=== PATIENT | female | born 1995 | race Caucasian/White ===

== ENCOUNTER 2018-12-02 20:24 | Emergency (ER) | payer SELFPAY ==
[~2018-12-02] VITALS: Ht 157.5 cm; Wt 61.2 kg
[2018-12-02 20:55] VITALS: BP 120/71; PULSE 108; RESP 20; Ht 157.5 cm; Wt 61.2 kg
== END 2018-12-02 23:28 | disposition left against medical advice (07) ==
LOC: FTE 20:24
DX: Z53.21 Procedure and treatment not carried out due to patient leaving prior to being seen by health care provider (principal)